=== PATIENT | male | born 1960 | race Caucasian/White ===

== ENCOUNTER 2024-10-26 09:33 | Observation (INO) ==
--- NOTE | 2024-09-21 12:06 | PAT Medication Instructions ---
Medication Instructions Date of Service September 21, 2024 Home Medications atorvastatin 80 mg tablet 80 mg PO QAM metformin 500 mg tablet 500 mg PO QAM metoprolol tartrate 100 mg tablet 100 mg PO BID multivitamin 1 tab PO QAM ramipril 10 mg capsule 10 mg PO QAM semaglutide 0.25 mg or 0.5 mg (2 mg/3 mL) subcutaneous pen injector (Ozempic) 0.5 mg subcut WK STOP 7 days before surgery semaglutide 0.25 mg or 0.5 mg (2 mg/3 mL) subcutaneous pen injector (Ozempic) 0.5 mg subcut WK DO NOT take the morning of surgery multivitamin 1 tab PO QAM ramipril 10 mg capsule 10 mg PO QAM metformin 500 mg tablet 500 mg PO QAM Take morning of surgery With a small sip of water, OTHERWISE NOTHING TO EAT OR DRINK AFTER MIDNIGHT: metoprolol tartrate 100 mg tablet 100 mg PO BID atorvastatin 80 mg tablet 80 mg PO QAM Take evening before surgery metoprolol tartrate 100 mg tablet 100 mg PO BID Other Notes If you have any questions please call us at [phone] or [phone] or [phone] or [phone]
--- NOTE | 2024-09-30 12:30 | Anesthesiology Consultation ---
Date of Service September 30, 2024 Assessment & Plan (1) Encounter for pre-operative examination: - Check BSG DOS - Infectious disease screening: Per assessment on 09/30/24- No known recent infectious disease contacts or current infectious disease symptoms. - Outpatient joint assessment: Pt currently scheduled for inpatient pathway. If surgeon requests review for outpatient joint pathway, patient is not recommended candidate for outpatient joint program from anesthesia standpoint based on available information. - Semaglutide instructions: Patient informed by PAT to stop 7 days prior to surgery- voiced understanding. DOS 10/26/24. Advised last dose to be 10/14/24. - PCP visit (02/26/24): "DM2- stable.. Obesity- see#1, heart healthy low fat, low carb diet highly encouraged.. CAD- stable on current medications, monitor" Chart Review Chart Review: Acceptable Risk for Surgery and Patient seen in Pre Admission Testing Teaching & Discussion Pre-Anesthesia Teaching/Discussion Notes: Instructed NPO after midnight before surgery,except medications with 15 cc of water. Medication instructions provided according to the PAT guidelines. History Surgery Operation Date: 10/26/24 08:40 Proposed Procedures p Left Total Knee Arthroplasty - Gordo Marte, Height/Weight Height: 5 ft 4 in Weight: 126.8 kg Allergies Allergy/AdvReac Type Severity Reaction Status Date / Time No Known Allergies Allergy Verified 09/21/24 10:49 Medications Home Medications Medication Instructions Recorded Confirmed Last Taken atorvastatin 80 mg tablet 80 mg PO QAM 09/21/24 09/21/24 Unknown metformin 500 mg tablet 500 mg PO QAM 09/21/24 09/21/24 Unknown metoprolol tartrate 100 mg tablet 100 mg PO BID 09/21/24 09/21/24 Unknown multivitamin 1 tab PO QAM 09/21/24 09/21/24 Unknown ramipril 10 mg capsule 10 mg PO QAM 09/21/24 09/21/24 Unknown semaglutide 0.25 mg or 0.5 mg (2 0.5 mg subcut WK 09/21/24 09/21/24 Unknown mg/3 mL) subcutaneous pen injector (Ozempic) Past Medical History Medical History (Updated 10/01/24 @ 10:27 by Asmita Crowe) Diabetes mellitus, type 2 History of kidney stones History of myocardial infarction Stents x 2 (RCA/Cx)- 2013 Hyperlipidemia Hypertension Morbid obesity Osteoarthritis Sleep apnea CPAP (occasional use) Exercise / Class Metabolic Activity II 4-5 Yardwork/Stairs/Walk up hill Past Family History Family History Mother No problems noted. Uncle Diabetes Aunt Colon cancer Brother Colon cancer Past Surgical History Surgical History (Updated 10/01/24 @ 10:27 by Asmita Crowe) History of cardiac cath 2013- stents x2 History of colonoscopy History of cystoscopy History of heart artery stent 2013- stents x2 History of lithotripsy Hx of hernia repair umblical Past Anesthesia History No Hx of Anesthesia Complications and No Family Hx of Anesthesia Complications History of PONV No Hx of PONV and No Hx of Motion Sickness Social History Smoking Status: Former smoker Do You Dip or Chew Tobacco: Yes (Daily- Advised none DOS) Smoking End Date: Quit 20+ years ago Hx Alcohol Use: No Hx Substance Use: No substance use type: does not use Review of Systems Patient denies chest pain, shortness of breath, dyspnea on exertion, fever, chills, cough, wheezing, palpitations. Physical Exam Vital Signs BP 128/83 P 63 TEMP 98.3 SP02 95%RA RESP 18 Physical Full cervical extension range of motion. Full TMJ range of motion. TMD 3 finger breaths (difficult to palpate) Mallampati Score III Dentition: missing sides Lungs: clear throughout to auscultation Cardiac: regular rate and rhythm, no murmurs noted Spine: normal Carotid arteries: negative bruit Extremities: no LE edema Very short, thick neck Lab Results Anesthesia Preop Results Results Anesthesia Widget: WBC 7.70 K/ul (4.8-10.8) 09/30/24 Hgb 14.5 g/dl (14.0-18.0) 09/30/24 Hct 42.2 % (42.0-52.0) 09/30/24 Plt 246 K/uL (130-400) 09/30/24 Na 138 mmol/L (136-145) 09/30/24 K 4.1 mmol/L (3.5-5.1) 09/30/24 Cl 105 mmol/L (98-107) 09/30/24 CO2 26 mmol/L (21-32) 09/30/24 BUN 14 mg/dl (6-23) 09/30/24 Creat 0.69 mg/dl (0.6-1.4) 09/30/24 Glucose Level 97 mg/dl (70-99(Fasting)) 09/30/24 PT 10.3 Seconds (9.0-12.0) 09/30/24 PTT 26 Seconds (21-31) 09/30/24 INR 0.9 (0.9-1.1) 09/30/24 HA1c 6.4 % (4.5-5.6) H 09/30/24 Blood Type O Positive 09/30/24 Antibody Screen NEGATIVE 09/30/24 Testing Electrocardiogram Date: 09/30/24 NSR at 60bpm. Inferior infarct, age undetermined. Inferior infarct cited on 2018 comparison ECG in system. Stress test done 2018. Chest X-Ray Date: 09/30/24 IMPRESSION: Normal chest X-ray. No acute cardiopulmonary abnormalities were identified. Stress Test Date: 08/19/19 Type: nuclear The SPECT perfusion images are considered to be within normal limits. LVEF and segmental wall motion are normal. Very low probability of CAD/ischemia/i nfarction. LVEF 56%.
[~2024-10-26 09:33] MED LIST: BUPIVACAINE 0.5 % 5 MG/1 ML PF 10ML VIAL ONE; ROPIVACAINE 0.5% 5 MG/ML 30 ML VIAL ONE
[2024-10-26] MEDS: LR 60ML/HR IV SCH (10:05)
[2024-10-26] MEDS: LR 500ML BOLUS, THEN 15ML/HR IV SCH (10:05)
[2024-10-26] MEDS: ACETAMINOPHEN 500 MG TAB PO SCH ×2 (10:06→22:24)
[2024-10-26] MEDS: FAMOTIDINE 20 MG TAB PO SCH (10:06)
[2024-10-26] MEDS: dexAMETHasone**PF** 10 MG/ML VIAL IV SCH (10:06)
[2024-10-26] MEDS: GABAPENTIN 600 MG DOSE PO SCH (10:06)
--- NOTE | 2024-10-26 12:01 | History & Physical Bridge Note ---
Date of Service October 26, 2024 History & Physical Bridge Note I have examined the patient, reviewed the History & Physical and in the interval since the performance of the History & Physical I have noted the following changes of clinical significance: no changes noted
[2024-10-26] MEDS ORDERED: PROPOFOL IV EMULSION 10 MG/ML 20 ML VIAL IV ONE ×2 (12:07→14:10)
[2024-10-26] MEDS ORDERED: ONDANSETRON INJ 2 MG/ML 2 ML VIAL ONE (12:07)
[2024-10-26] MEDS ORDERED: MIDAZOLAM HCL 1 MG/ML 2ML VIAL ONE (12:07)
[2024-10-26] MEDS ORDERED: GLYCOPYRROLATE 0.2 MG/ML VIAL ONE (12:07)
[2024-10-26] MEDS ORDERED: LIDOCAINE 2% 2 ML VIAL/AMP(20MG/ML) INFIL ONE (12:07)
[2024-10-26] MEDS: TRANEXAMIC ACID 1,000 MG **IV Pre-op IV SCH (12:48)
[2024-10-26] MEDS: ceFAZolin 3000MG 3,000 MG/72.5 ML BAG IV SCH (13:02)
[2024-10-26] MEDS ORDERED: KETAMINE HCL 10MG/ML SYR ONE (13:17)
[2024-10-26] MEDS ORDERED: PHENYLEPHRINE 100MCG/ML 5ML SYR ONE ×2 (13:25→14:21)
[2024-10-26] MEDS: ROPIV 0.5% 246mg, Ketorolac 30mg, EPINEPHrine 0.5mg in NSS INFIL SCH (13:36)
[2024-10-26] MEDS: ORTHO JOINT ANESTHETIC ONE (13:36)
[2024-10-26] MEDS: TRANEXAMIC ACID 1,000 MG **IV Intra-op IV SCH (14:07)
--- NOTE | 2024-10-26 14:31 | Operative Report ---
PG Post Operative Report Pre & Post Diagnosis Operation Date: 10/26/24 12:00 Pre-Op Diagnosis: Left Knee Osteoarthritis Post-Op Diagnosis: Left Knee Osteoarthritis I identified the patient and participated in the time-out.: Yes Procedure Operation Date: 10/26/24 12:00 Actual Procedures p Left Total Knee Arthroplasty(Left) - Gordo Marte DO Surgeon Gordo Marte DO Pharmacy Intern Bob Vicente PA-C Estimated Blood Loss 30 Findings Consistent with Post-Op Diagnosis Specimens Right femoral and tibial bone Description of Procedure Implants used: I used a Matthew Persona total knee arthroplasty system with a size 10 PS standard femur, F tibia, 34 oval patella, and a size 12 CPS polyethylene bearing. All components were cemented in place with Biomet cement. Olman arrived [facility] for the above procedure. He was seen in the preoperative holding area and the operative extremity was identified and signed. He was given a preoperative antibiotic, TXA, a spinal anesthetic and an adductor nerve block. He was taken back to the operating room and laid on the table in supine position. He was given basic sedation. The operative knee was then prepped and draped in sterile fashion. A timeout was done, and the patient and the operative extremity was properly identified. A midline incision was made directly over the patella. Dissection was taken down to the extensor mechanism. A medial parapatellar arthrotomy was used. The medial retinaculum was released and the fat pad was mostly excised. The knee was flexed and the ACL, PCL, and meniscus were removed. A drill was sent down the center of the femoral canal followed by an intramedullary bettina. Off that bettina a distal femoral cutting block was placed. 9 mm was resected off the distal femur at 5 of valgus. A posterior referencing AP sizing guide was then placed on the distal femur. The femur measured to be a size 10. 2 drill holes were placed in 3 of external rotation. A 4-in-1 cutting block was then impacted into place. Anterior, posterior, and chamfer cuts were then made. The proximal tibia was then exposed. An external tibial alignment guide was placed. A tibial cut guide was then anchored in place and the proximal tibia was then resected. The posterior aspect of the knee was then opened up and any additional meniscus fragments and osteophytes were removed. The tibia measured to be a size F. The tibial plate was then placed in the appropriate rotation and the tibia was drilled and punched. Trial components were then placed. I used a size 12 CPS polyethylene insert. The knee was brought through a full range of motion and felt to be stable. The peg holes for the femoral component were then drilled. The patella was then everted and 9 mm was resected off the posterior aspect of the patella. The patella measured to be a size 34 oval. 3 peg holes were then drilled. A trial patella was placed. The knee was once again brought through a full range of motion and felt to be stable. Trial components were then removed. The surrounding soft tissues were injected with 100 cc of an orthopedic pain control cocktail. All components were then cemented into place with Biomet cement. The final polyethylene insert was then snapped into place. Once cement was dry the tourniquet was deflated. He mostasis was obtained. A dilute betadyne lavage was then done for 3 minutes. The joint was then irrigated with normal saline solution. The medial parapatellar arthrotomy was then closed with #1 Vicryl suture. The skin was closed with 2-0 Vicryl, 3-0V lock suture, and grady. A soft compressive dressing was placed. He was then transferred to a hospital bed and taken to the postanesthesia care unit in stable condition. He tolerated the procedure well. Bob Vicente PA-C, was present for the entire procedure. He was critical for patient positioning, prepping, draping, retraction exposure, wound closure and application of sterile dressing. I attest to the content of the Intraoperative Record and any orders documented therein. Any exceptions are noted below.
--- NOTE | 2024-10-26 15:32 | Anesthesiology Progress Note ---
Date of Service October 26, 2024 Anesthesia Post Procedure Vital Signs Vital Signs: Temp Pulse Pulse Resp BP Pulse Ox O2 Del Method 10/26/24 15:20 97.5 F L 90 15 119/79 95 Nasal Cannula 10/26/24 15:10 95 H 14 112/77 93 Nasal Cannula 10/26/24 15:00 92 H 15 109/73 96 Oxymask 10/26/24 14:50 98 H 15 109/81 96 Oxymask 10/26/24 14:40 97.2 F L 92 H 17 102/67 96 Oxymask 10/26/24 09:56 97.9 F 62 20 134/89 95 Room Air O2 Flow Rate 10/26/24 15:20 4 10/26/24 15:10 4 10/26/24 15:00 5 10/26/24 14:50 5 10/26/24 14:40 5 10/26/24 09:56 Transfer of Care Handoff Completed per policy Notes Mental Status: alert / awake / arousable and participated in evaluation Patient Amnestic to Procedure: Yes Nausea / Vomiting: adequately controlled Pain: adequately controlled Airway Patency, RR, SpO2: stable & adequate BP & HR: stable & adequate Hydration State: stable & adequate Neuraxial Anesthesia: was administered and sensory block is resolving Anesthetic Complications: no major complications apparent and Pt Satisfied with anesthetic care
[2024-10-26] MEDS ORDERED: bisacodyL 10 MG SUPP PR PRN (16:07)
[2024-10-26] MEDS ORDERED: NON-FORMULARY MEDICATION (Semaglutide [Ozempic] 0.25 mg or 0.5 mg (2 mg/3 mL) Pen Injector SQ SCH (16:07)
[2024-10-26] MEDS ORDERED: MAGNESIUM HYDROXIDE SUSP 30 ML UDC PO PRN (16:07)
[2024-10-26] MEDS ORDERED: traMADol HCL 50 MG TABLET PO PRN (16:07)
[2024-10-26] MEDS ORDERED: METOCLOPRAMIDE HCL INJ 5 MG/ML 2 ML VIAL IV PRN (16:07)
[2024-10-26] MEDS ORDERED: NALOXONE HCL 0.4 MG/1 ML VIAL/CARP IV PRN (16:07)
[2024-10-26] MEDS ORDERED: HYDROmorphone INJ 0.5 MG/0.5 ML SYR IV PRN (16:07)
[2024-10-26] MEDS ORDERED: PHARMACY GLYCEMIC MGMT CONSULT PRN (16:07)
[2024-10-26] MEDS ORDERED: ONDANSETRON INJ 2 MG/ML 2 ML VIAL IV PRN (16:07)
[2024-10-26] MEDS: ceFAZolin 2,000 MG/15 ML IV PUSH IV ONE (16:17)
--- NOTE | 2024-10-26 16:37 | Pharmacy Report ---
Pharmacy Glycemic Short Note 2 - Date of Service October 26, 2024 - Glycemic Short BSG Results (Last 24 hours): 10/26/24 10/26/24 09:59 14:37 POC Glucose 148 H 165 H OUTPATIENT ANTIDIABETIC REGIMEN: * metformin 500 mg daily, ozempic ASSESSMENT: * 64 year old s/p surgery, POD 0 - pharmacy consulted for glycemic management. Received IV steroids preop - therefore anticipate steroid induced hyperglycemia. Will utilize weight based stress of 2/3 dosing (adj bw) - will consider one time dose of Lantus if BSGs 180 postop. PLAN FOR INPATIENT GLYCEMIC CONTROL: * Hold outpatient oral diabetes medications * Basal insulin * Lantus - hold * Bolus insulin * NovoLog per scale ACHS or Q6hrs while NPO * Goal Range: Low 110 mg/dL - High 140 mg/dL * Correction Factor: 20 mg/dL/unit * Nutritional / Prandial insulin per carb ratio of 1 unit per 7 grams CHO consumed
[2024-10-26] MEDS ORDERED: GLUCAGON FOR INJ 1 MG VIAL SQ PRN (16:45)
[2024-10-26] MEDS ORDERED: GLUCOSE 40% GEL 15 GM TUBE PO PRN (16:45)
[2024-10-26] MEDS ORDERED: DEXTROSE 50% 50 ML SYRINGE IV PRN (16:45)
[2024-10-26] MEDS ORDERED: GLUCOSE 10 TAB/TUBE PO PRN (16:45)
[2024-10-26] MEDS ORDERED: CARBOHYDRATES FOR HYPOGLYCEMIA PO PRN (16:45)
[2024-10-26] MEDS: INSULIN ASPART PER UNIT CHARGE SC SCH ×2 (16:58→23:51)
[2024-10-26] MEDS: LANTUS PER UNIT CHARGE SC ONE (17:15)
[2024-10-26] MEDS: KETOROLAC TROMETHAMINE 15 MG/ML VIAL IV SCH (17:23)
[2024-10-26] MEDS ORDERED: ceFAZolin 1000MG 1,000 MG/7.5 ML SYR IV SCH (21:00)
[2024-10-26] MEDS: ceFAZolin 2000MG 2,000 MG/15 ML SYR IV SCH (21:02)
[2024-10-26] MEDS: ASPIRIN 81 MG ECTAB PO SCH (21:02)
[2024-10-26] MEDS: DOCUSATE SODIUM 100 MG CAP PO SCH (21:02)
[2024-10-26] MEDS: SENNA 8.6 MG TAB PO SCH (21:02)
[2024-10-26] MEDS: METOPROLOL TARTRATE 100 MG TAB PO SCH (21:03)
[2024-10-27 03:57] VITALS: RESP 16
--- NOTE | 2024-10-27 06:15 | Orthopedic Progress Note ---
Date of Service October 27, 2024 Assessment & Plan (1) Status post left knee replacement: Overall he is doing very well. He is not having much pain in the left knee. He will be seen by physical therapy today for ambulation and range of motion exercises. He is on aspirin for DVT prophylaxis. He can be discharged to home later today. He will follow-up orthopedics in 2 weeks. Paco Thurman was seen and examined at bedside this morning. Overall he is doing very well. He is not having much pain in the left knee. He has been up and ambulating to the bathroom. He is no complaints.. Review of Systems All systems reviewed & are unremarkable except as noted in HPI & below. Physical Exam On physical exam of the left knee, the dressing is clean and dry. His leg is out full extension. He has active dorsiflexion plantarflexion of his left ankle.. Results & Data Results & Data Laboratory Results . Diagnostic Findings Postoperative x-rays of the left knee show the prosthesis to be in anatomic alignment without any evidence of fracture, dislocation, or loosening.. PG Care Time/CCT Total # of Minutes Spent Total Time Spent with Patient: Total time spent is greater than 50% in coordination of care (as documented) at patient's floor/unit and/or counseling patient: Coding Level of Care Code 88056 Post Operative Follow-Up Diagnoses Status post left knee replacement Z96.652
--- NOTE | 2024-10-27 06:16 | Discharge Summary ---
Date of Service October 27, 2024 Principal Diagnosis Same as "Discharge Diagnosis" noted below under Discharge Instructions. Discharge Exam On physical exam of the left knee, the dressing is clean and dry. His leg is out full extension. He has active dorsiflexion plantarflexion of his left ankle.. Discharge Data Procedures Performed Operation Date: 10/26/24 12:00 Actual Procedures p Left Total Knee Arthroplasty(Left) - Gordo Marte DO Ordered Studies 10/26/24 05:00 US - OR guided needle placemen Routine Hospital Course (1) Status post left knee replacement: On October 26, 2024 Olman arrived at [facility] and underwent a left knee replacement without complication. He had a spinal anesthetic. Postoperatively, he was started on aspirin for DVT prophylaxis and transferred to the general orthopedic floors. His hospital course was uneventful. On postop day #1, his vital signs were stable and his pain was well-controlled. He was able to participate well with physical therapy doing ambulation and range of motion exercises. He was then discharged to home. He will follow-up orthopedics in 2 weeks. PG Care Time/CCT Total # of Minutes Spent Total Time Spent with Patient: Total time spent is greater than 50% in coordination of care (as documented) at patient's floor/unit and/or counseling patient: Discharge Plan Discharge Items Patient Disposition: Home - Self-Care Reason For Visit: Left Knee Osteoarthritis Discharge Diagnosis: Left knee replacement Activity: Per Instructions section Non-emergency contact: Surgeon Call non-emergency contact if: your wound has increased redness and your wound has increased drainage Follow-up/Referrals: Janet Roland, MIRTA [Primary Care Provider] - Diet: Regular Addtl Attending Provider Instructions: Activity and Therapy Recommendations: * If you are using [facility] then therapy will be provided at your home until they feel you have accomplished all of your goals. * If you are using [facility] then Physical Therapy will be provided until they feel you are ready to start Outpatient Physical Therapy. * If you are not using home therapy then Outpatient Physical Therapy should start about 3-5 days from your day of surgery. Therapy will last about 6-10 weeks * It is important not to put a pillow under your knee when you are relaxing or sleeping. It is just as important to make sure you are getting your knee perfectly straight as it is to regain your knee bend. * You were shown a series of exercises in the hospital. Do these exercises three times each day including the exercises you were shown in physical therapy. * Get up and walk several times each day. For the first four weeks, try not to stand or walk for more than one hour at a time. If you do stand or walk for more than one hour, you will not hurt anything, but your leg will likely swell. * As you feel comfortable, you may change from the walker or crutches to a cane and then to independent walking. Medications: * Narcotic You will likely be sent home from the hospital with a prescription for the narcotic pain medication that worked best throughout your stay. * Cefadroxil -take the antibiotic twice a day for 10 days to help prevent infection. * Aspirin Most patients will be required to take Aspirin 81mg twice a day for 6 weeks after surgery. This is obtained [id number] and a prescription is not necessary. * Other medications may be prescribed for specific circumstances. If you have any questions, please call the office at . * Resume previous home medications unless otherwise instructed TEDs/Elastic Stockings: The white elastic stockings help limit swelling and prevent blood clots from forming in your legs.~ The more you wear them, the more they work. Wear them for six weeks. Dressing Care: The dressing can be changed after physical therapy on postop day #1. Daily dry dressing changes for a few days, especially if the incision is still draining some. If the incision is not draining then you may leave the grady open to air. If there is a little bit of drainage or if the grady are getting stuck on your clothing then cover the incision with a dry dressing. The grady will be removed at your 2 week follow-up appointment. Showering: You may shower 5 days from the day of surgery as long as the incision is no longer draining. You may shower with the grady exposed. Let soapy water run over the grady and pat them dry. Do not scrub or soak the incision. Diet: You may resume your previous diet. Things To Watch For: * Drainage from the incision site that occurs more than one week after your surgery. * Increased redness at the incision site. * Fever above 102 degrees Fahrenheit. * Unusual chest pain or shortness of breath. * Call [facility] at with any of the above problems Follow-Up Visit: Follow-up with Dr. Marte's office 2-3 weeks after your day of surgery. We will remove your grady and answer any questions. If you have any additional questions or concerns, Dr Marte is usually in the office at the same time and will be available An appointment was probably scheduled when you signed-up for surgery in the office. If you have any questions call Office Instructions: More detailed instructions as well as Frequently Asked Questions were provided in a folder by our office when you signed-up for surgery. Please review these instructions when you get home. If you have any further questions or concerns, please feel free to call the office at [phone] Pending Studies at Discharge: No Stand-Alone Forms: [facility] Medications and DC Order Prescriptions: New oxycodone 5 mg tablet 5 mg PO Q6H PRN (Reason: pain) Qty: 30 0RF cefadroxil 500 mg capsule 500 mg PO BID 10 Days Qty: 20 0RF aspirin [Adult Aspirin Regimen] 81 mg tablet,delayed release (DR/EC) 81 mg PO BID Qty: 84 0RF Continued metformin 500 mg Tablet 500 mg PO QAM atorvastatin 80 mg Tablet 80 mg PO QAM metoprolol tartrate 100 mg Tablet 100 mg PO BID ramipril 10 mg Capsule 10 mg PO QAM Ozempic 0.25 mg or 0.5 mg (2 mg/3 mL) Pen Injector 0.5 mg SUBCUT WK Patient Comments: takes on Wednesdays > last dose Oct 14 multivitamin Tablet 1 tab PO QAM Discharge Orders: Discharge Order (Routine); Ordered 10/27/24 Ordered By: Gordo Marte Admission Data Admit Date/Time: 10/26/24 14:36 Attending Provider: Gordo Marte Admit Provider: Gordo Marte Primary Care Provider: Janet Roland
--- NOTE | 2024-10-27 07:08 | XRay Report ---
XR knee LT 1 or 2V routine INDICATION: Postop left knee. COMPARISON: 06/11/2024. FINDINGS: Status post total knee arthroplasty without periprosthetic lucency or fracture of the hardware. No evidence of acute fracture or dislocation. Surgical clips are present anterior to the knee joint. IMPRESSION: Postoperative changes in the knee joint without hardware complication. Electronically signed by Navjot Laws 10-27-2024 07:08 AM
[2024-10-27 08:16] VITALS: BP 118/76; PULSE 79; TEMP 98.1; O2SAT 95
[2024-10-27] MEDS ORDERED: NON-FORMULARY MEDICATION (Multivitamin Tablet) PO SCH (09:00)
[2024-10-27] MEDS ORDERED: metFORMIN HCL 500 MG TAB PO SCH (09:00)
[2024-10-27] MEDS: ATORVASTATIN 40 MG TAB PO SCH (09:51)
[2024-10-27] MEDS: MULTIVITAMIN TAB PO SCH (09:52)
[2024-10-27] MEDS: metFORMIN HCL ER 500 MG TABCR PO SCH (09:52)
[2024-10-27] MEDS: ENALAPRIL MALEATE 10 MG TAB PO SCH (09:52)
[2024-10-27] MEDS: oxyCODONE HCL IR 5 MG TAB (IMMEDIATE RELEASE) PO PRN (11:21)
== END 2024-10-27 12:35 | disposition home or self-care (01) ==
LOC: ASU 09:33 → 3W 09:33